=== PATIENT | female | born 1985 | race Caucasian/White ===

== ENCOUNTER 2021-08-27 14:18 | Emergency (ER) | payer BC, SELFPAY ==
[2021-08-27 14:34] VITALS: BP 127/76; PULSE 97; RESP 18; TEMP 36.6; O2SAT 100
--- NOTE | 2021-08-27 15:09 | ED.SKABFB ---
HPI - Skin/Abscess/Foreign Bdy General Chief complaint: Skin/Abscess/Foreign Body Stated complaint: Hives Time Seen by Provider: 08/27/21 15:10 Source: patient and RN notes reviewed Mode of arrival: ambulatory Limitations: no limitations History of Present Illness HPI narrative: 36-year-old female presents to the [facility] with hives to her face and lower extremities. Patient reports she keeps having these idiopathic hives from an unknown source every year for the last 10 years. States it started when she was with her daughter. Has been treated with a Medrol Dosepak recently along with Uvaldo Wright Patient states she has her class reunion coming up and needs her skin clear. Related Data Allergies Allergy/AdvReac Type Severity Reaction Status Date / Time amoxicillin Allergy Intermediate Rash Verified 08/24/21 16:21 Sulfa (Sulfonamide Allergy Intermediate Rash Verified 08/24/21 16:21 Antibiotics) azithromycin Allergy Unknown Unknown Verified 08/24/21 16:21 erythromycin base Allergy Unknown Unknown Verified 08/24/21 16:21 hydroxyzine AdvReac Unknown Other Verified 08/24/21 16:21 Review of Systems Review of Systems: All systems reviewed & are unremarkable except as noted in HPI and below Constitutional: Constitutional: Reports no additional constitutional complaints, Denies chills and Denies fever(s) Eyes: Eyes: Reports no additional eye complaints ENT: Reports system reviewed and no additional complaints, except as documented Cardiovascular: Cardiovascular: Reports no additional cardiovascular complaints Respiratory: Respiratory: Reports no additional respiratory complaints Gastrointestinal: Gastrointestinal: Reports no additional gastrointestinal complaints Musculoskeletal: Musculoskeletal: Reports no additional musculoskeletal complaints Integumentary/Breasts: Skin/Breast: Reports as per HPI and Reports rash Neurologic: Reports system reviewed and no additional complaints, except as documented Psychiatric: Psychiatric: Reports no additional psychiatric complaints Allergic/Immunologic: Allergic/Immunologic: Reports no additional allergic/immunologic complaints [facility] Past Medical History Medical History (Updated 08/27/21 @ 21:04 by Ruth Austin APRN) Idiopathic urticaria Surgical History Surgical History (Updated 08/27/21 @ 21:04 by Ruth Austin APRN) No pertinent past surgical history Social History Social History (Updated 08/27/21 @ 21:04 by Ruth Austin APRN) Living arrangements: with family Gender identity (if verbalized by the patient): Female Comments At the time of my signature, I reviewed and agree with the nursing past medical, surgical, social, and family history. There is no relevant family history pertinent to the patient complaint. Exam Const: General: healthy appearing, no acute distress and alert Nutritional Appearance: well nourished Orientation/consciousness: patient oriented x3 Limitations: no limitations HENMT: Head: normal to inspection Ears: external ears normal Eyes: General: appearance normal, both eyes and all related structures Pupils: Equal, round and reactive pupils present Neck: Neck: normal visual inspection, no lymphadenopathy and no meningeal signs Chest: Chest palpation & inspection: normal inspection of the chest Resp: Effort & Inspection: normal respiratory effort and no use of accessory muscles Auscultation: clear to auscultation bilaterally, no crackles, no rales, no rhonchi and no wheezes Cardio: Rate: regular rate Rhythm: regular rhythm Back/Spine/Pelvis: Cervical Spine: normal cervical lordosis Thoracic/Lumbar Spine: thoracic and lumbar spine normal to inspection Skin: General skin exam: normal color Rashes: rashes noted (Hives lower legs, contact dermatitis face) Wounds: no wounds Neuro: General: patient oriented x3, moves all extremities, no meningeal signs and no focal motor deficits Cranial nerves: Yes Eq
== END 2021-08-27 15:25 | disposition home or self-care (01) ==
PROVIDERS: Emergency Provider Nurse Practitioner
DX: L50.9 Urticaria, unspecified (principal)
CPT/HCPCS: 99213; G0463

== ENCOUNTER 2022-08-25 16:07 | Emergency (ER) | payer BC, SELFPAY ==
[2022-08-25 16:17] VITALS: BP 121/71; PULSE 93; RESP 16; TEMP 37.1; O2SAT 99
--- NOTE | 2022-08-25 16:21 | ED.SKABFB ---
HPI - Skin/Abscess/Foreign Bdy General Chief complaint: Wound/Laceration Stated complaint: tick bite irritation to back of head Time Seen by Provider: 08/25/22 16:44 Source: patient and RN notes reviewed Mode of arrival: ambulatory Limitations: no limitations History of Present Illness HPI narrative: 37-year-old female presents with concern for a tick bite to the back of her head. She reports she noticed the tick 5 days ago, removed it. She reports the entire take came out. She reports that area is tender and she has a red bump. She reports she feels tired and feels like her lymph nodes are swollen. Patient had a a prescription for doxycycline that she was prescribed at the end of July before she had the tick bite, for a skin infection. She reports her skin infection was getting better so she stopped taking the doxycycline less than half week through. She has not taken any doxycycline dose since she removed the tick MD complaint: insect bite/sting Related Data Home Medications Medication Instructions Recorded Confirmed bupropion HCl 300 mg 24 hr tablet, mg PO 08/25/22 extended release norethindrone (contraceptive) 0.35 mg 08/25/22 mg tablet Allergies Allergy/AdvReac Type Severity Reaction Status Date / Time amoxicillin Allergy Intermediate Rash Verified 08/25/22 16:12 Sulfa (Sulfonamide Allergy Intermediate Rash Verified 08/25/22 16:12 Antibiotics) azithromycin Allergy Unknown Unknown Verified 08/25/22 16:12 erythromycin base Allergy Unknown Unknown Verified 08/25/22 16:12 trazodone Allergy Other Verified 08/25/22 16:44 hydroxyzine AdvReac Unknown Other Verified 08/25/22 16:12 Review of Systems Review of Systems: CONSTITUTIONAL: Denies malaise, chills, sweats, or fever. Reports fatigue EYES: Denies redness, or discharge. ENT: Denies rhinorrhea, congestion, swollen lips, swollen tongue CARDIOVASCULAR: Denies chest pain, palpitations, or edema. RESPIRATORY: Denies cough or dyspnea. GASTROINTESTINAL: Denies abdominal pain, nausea, vomiting SKIN: Reports a red bump on the back of her head where she removed a tick MUSCULOSKELETAL: Denies joint pain. Reports myalgia. NEUROLOGIC: Denies headache. All systems reviewed & are unremarkable except as noted in HPI and below PMFSH Past Medical History Medical History (Updated 08/25/22 @ 16:50 by Ruth Trotter NP) Idiopathic urticaria Surgical History Surgical History (Updated 08/27/21 @ 21:04 by Ruth Austin APRN) No pertinent past surgical history Social History Social History (Updated 08/27/21 @ 21:04 by Ruth Austin APRN) Living arrangements: with family Gender identity (if verbalized by the patient): Female Comments At time of signature, agree with nursing past medical, surgical, social and family history. There is no relevant family history pertinent to the presenting complaint Exam Narrative: GENERAL: Well-appearing, well-nourished, and in no acute distress. HEAD: Normocephalic, atraumatic. EYES: PERRLA, conjunctivae clear, and EOMI. ENT: Mucous membranes moist. Oropharynx without edema, erythema or lesions. NECK: Supple. No lymphadenopathy CHEST: Clear to auscultation. No respiratory distress. HEART: Regular rate and rhythm. SKIN: Warm, dry. 1 cm raised erythematous nonfluctuant tender papule noted to the back of the head in the hairline. No erythema migrans noted NEURO: Alert and oriented x3. PSYCH: Normal mood and affect Course Course Emergency Course: Patient is aware of diagnosis, understands and agrees to treatment plan. Anticipatory guidance given. Patient agrees to follow-up as directed and is aware of reasons to seek care at the emergency department. Portions of this record may have been created with voice recognition software Level of Care: Express Care Visit Vital Signs Vital signs: Vital Signs Temperature 98.8 F 08/25/22 16:17 Pulse Rate 93 08/25/22 16:17 Respiratory Rate 16 06
[2022-08-25 16:44] VITALS: BP 121/71; PULSE 93; RESP 16; TEMP 37.1; O2SAT 99
== END 2022-08-25 16:53 | disposition home or self-care (01) ==
PROVIDERS: Emergency Provider Nurse Practitioner; PCP Physician Assistant
DX: S00.06XA Insect bite (nonvenomous) of scalp, initial encounter (principal); W57.XXXA Bitten or stung by nonvenomous insect and other nonvenomous arthropods, initial encounter
CPT/HCPCS: 99213; G0463

== ENCOUNTER 2022-10-29 15:58 | Emergency (ER) | payer BC, SELFPAY ==
[2022-10-29 15:59] VITALS: BP 107/64; PULSE 102; RESP 16; TEMP 36.8; O2SAT 98
[2022-10-29] MEDS: CLINDAMYCIN HCL 150 MG CAP 450 MG PO (17:42)
[2022-10-29] MEDS: ACETAMINOPHEN 500 MG TABLET 1000 MG PO (17:42)
--- NOTE | 2022-10-29 18:31 | ED.GENADULT ---
HPI - General Adult General Chief complaint: Skin/Abscess/Foreign Body Stated complaint: skin break out Time Seen by Provider: 10/29/22 16:44 History of Present Illness HPI narrative: Beth Hurd is a 37 y/o female who presents with reports of this ongoing rash to her face and some spots on her legs. She states that she has seen multiple walk in clinics, her PCP and she has tried several different antibiotics She reports that she had a dermatology appointment lined up but canceled because they told her they wouldn't be able to do a biopsy. She denies any fever/chills/abdominal pain/ nausea/vomiting She comes in with a few pages of hand written self documentation of what she has been going through over the past few months regarding this rash. Related Data Home Medications Medication Instructions Recorded Confirmed bupropion HCl 300 mg 24 hr tablet, mg PO 08/25/22 extended release norethindrone (contraceptive) 0.35 mg 08/25/22 mg tablet Allergies Allergy/AdvReac Type Severity Reaction Status Date / Time amoxicillin Allergy Intermediate Rash Verified 08/25/22 16:12 Sulfa (Sulfonamide Allergy Intermediate Rash Verified 08/25/22 16:12 Antibiotics) azithromycin Allergy Unknown Unknown Verified 08/25/22 16:12 erythromycin base Allergy Unknown Unknown Verified 08/25/22 16:12 trazodone Allergy Other Verified 08/25/22 16:44 hydroxyzine AdvReac Unknown Other Verified 08/25/22 16:12 Review of Systems Review of Systems: CONSTITUTIONAL: Denies fever, chills, or sweats. EYES: Denies visual changes, redness, or discharge. ENT: Denies rhinorrhea, congestion, sore throat, or otalgia. CARDIOVASCULAR: Denies chest pain, palpitations, or edema. RESPIRATORY: Denies cough or dyspnea. GASTROINTESTINAL: Denies abdominal pain, nausea, vomiting, or diarrhea. GENITOURINARY: Denies dysuria or hematuria. SKIN: itching rash to face, with a few spots to her legs. MUSCULOSKELETAL: Denies back pain, joint pain, or myalgia. NEUROLOGIC: Denies headache, numbness, dizziness, or weakness. PSYCHIATRIC: Denies anxiety or depression. [facility] Past Medical History Medical History Idiopathic urticaria Surgical History Surgical History No pertinent past surgical history Social History Social History Living arrangements: with family Gender identity (if verbalized by the patient): Female Exam Narrative: GENERAL: Well-appearing, well-nourished, and in no acute distress. HEAD: Normocephalic, atraumatic. EYES: PERRLA and EOMI. ENT: Nares clear, no rhinorrhea or epistaxis. Mucous membranes moist. Oropharynx without tonsillar hypertrophy exudate or other lesions. NECK: Supple. No adenopathy or masses. No carotid bruits or JVD CHEST: Clear to auscultation. No respiratory distress. No wheezes rales or rhonchi HEART: Regular rate and rhythm. No murmur heard. Normal peripheral pulses. ABDOMEN: Soft, nontender, nondistended, normal active bowel sounds. EXTREMITIES: Normal range of motion. No edema. SKIN: Warm, dry, multiple pustules noted to face in different stages of healing. No evidence of fluctuance/ evident of abscess NEURO: No focal deficits. Alert and oriented x3. PSYCH: Normal mood and affect. Course Vital Signs Vital signs: Vital Signs Temperature 36.8 C 10/29/22 15:59 Pulse Rate 102 H 10/29/22 15:59 Respiratory Rate 16 10/29/22 15:59 Blood Pressure 107/64 10/29/22 15:59 Pulse Oximetry 98 10/29/22 15:59 Temperature 36.8 C 10/29/22 15:59 Pulse Rate 102 H 10/29/22 15:59 Respiratory Rate 16 10/29/22 15:59 Blood Pressure 107/64 10/29/22 15:59 Pulse Oximetry 98 10/29/22 15:59 Medical Decision Making MDM Narrative Medical decision making narrative: On exam pt is upset that she is dealing with this rash reports
== END 2022-10-29 17:44 | disposition left against medical advice (07) ==
PROVIDERS: Emergency Provider Nurse Practitioner Family; PCP Physician Assistant
DX: L01.00 Impetigo, unspecified (principal); L25.9 Unspecified contact dermatitis, unspecified cause
CPT/HCPCS: 87070; 87147; 87181; 87186; 87205; 99283; A9270

== ENCOUNTER 2023-06-11 12:26 | Emergency (ER) | payer BC, SELFPAY ==
[2023-06-11 12:30] VITALS: BP 122/79; PULSE 107; RESP 16; TEMP 36.6; O2SAT 100
--- NOTE | 2023-06-11 13:51 | ED.SKABFB ---
HPI - Skin/Abscess/Foreign Bdy General Chief complaint: Skin/Abscess/Foreign Body Stated complaint: skin infection Time Seen by Provider: 06/11/23 13:51 Focused HPI: Kim is a 38-year-old female patient presenting to the clinic today with complaints of a skin infection to her face and neck. She reports she does have history of a staph infection in the past and has been apply mupirocin cream however she ran out the mupirocin cream. The infection is now getting worse and his traveling to her neck. States she has had history of rhinoplasty/septoplasty with grafting. Denies any fever, chills, or body aches. Patient is afebrile at this time. General: Well-developed, well nourished, in no apparent distress Head: Normocephalic, atraumatic Eyes: Pupils equally round and reactive to light bilaterally, EOM intact, sclera and conjunctive clear, no discharge, lids normal Ears: TMs intact and clear, ear canals clear, no drainage, grossly hearing normal. Nose: Nares patent, no discharge, mild inflammation, no sinus tenderness. Mouth: Oropharynx without lesions or masses, good dentition, MMM. Neck: Supple, trachea midline, no enlargement of anterior or posterior cervical nodes, no thyroid masses or goiter palpable. Cardio: Regular rate and rhythm, s1 and s2 normal, no murmur appreciated. Resp: Clear to auscultation bilaterally anteriorly and posteriorly, no rhonchi, rales, wheezing or rubs Integumentary: [place], warm, and dry, red, yellow crusted wounds to the nose and cheeks with some redness rash to the anterior left and right neck Patient screened in triage and initial orders placed. Additional care and disposition to be based upon diagnostic testing and treatment. Source: patient Mode of arrival: ambulatory Limitations: no limitations Related Data Home Medications Medication Instructions Recorded Confirmed bupropion HCl 300 mg 24 hr tablet, mg PO 08/25/22 extended release norethindrone (contraceptive) 0.35 mg 08/25/22 mg tablet Allergies Allergy/AdvReac Type Severity Reaction Status Date / Time amoxicillin Allergy Intermediate Rash Verified 08/25/22 16:12 Sulfa (Sulfonamide Allergy Intermediate Rash Verified 08/25/22 16:12 Antibiotics) azithromycin Allergy Unknown Unknown Verified 08/25/22 16:12 erythromycin base Allergy Unknown Unknown Verified 08/25/22 16:12 Penicillins Allergy Unknown Verified 06/11/23 12:36 trazodone Allergy Other Verified 08/25/22 16:44 hydroxyzine AdvReac Unknown Other Verified 08/25/22 16:12 Review of Systems Review of Systems: Pertinent positives per HPI. Patient denies any fever, chills, headache, visual changes, dizziness, cough, runny nose, sore throat, shortness of breath, chest pain, palpitations, nausea, vomiting, diarrhea, constipation, abdominal pain, or any urinary issues. PMFSH Past Medical History Medical History Idiopathic urticaria Surgical History Surgical History No pertinent past surgical history Social History Social History Living arrangements: with family Gender identity (if verbalized by the patient): Female Comments At the time of my signature, I reviewed and agree with the nursing past medical, surgical, social, and family history. There is no relevant family history pertinent to the patient complaint. Exam Narrative: General: Well-developed, well nourished, in no apparent distress Head: Normocephalic, atraumatic Eyes: Pupils equally round and reactive to light bilaterally, EOM intact, sclera and conjunctive clear, no discharge, lids normal Ears: TMs intact and clear, ear canals clear, no drainage, grossly hearing normal. Nose: Nares patent, no discharge, mild inflammation, no sinus tenderness. Mouth: Oropharynx without lesions or masses, good dentition, MMM. Neck:
[2023-06-11 14:12] LABS: Basophils Absolute Auto 0.1 K/mm3 (0.0-0.1); Eosinophils Absolute Auto 0.1 K/mm3 (0-0.3); Eosinophils Percent Auto 1.7 % (0-4.4); Hematocrit 39.1 % (37.0-47.0); Hemoglobin 12.7 g/dL (12.0-15.0); Immature Granulocyte Absolute 0.01 K/mm3 (0.00-0.031); Immature Granulocyte Percent A 0.2 % (0-0.5); Lymphocytes Absolute Auto 1.76 K/mm3 (0.9-3.2); Lymphocytes Percent Auto 29.5 % (18.3-44.2); Mean Corpuscular HGB Conc 32.5 g/dl (32-36); Mean Corpuscular Hemoglobin 29.2 pg (26-34); Mean Corpuscular Volume 89.9 fl (80-100); Mean Platelet Volume 10.7 fl (7.4-10.4); Monocytes Absolute Auto 0.6 K/mm3 (0.1-0.6); Monocytes Percent Auto 9.2 % (2.6-8.5); Neutrophils Absolute Auto 3.5 K/mm3 (1.3-6.7); Neutrophils Percent Auto 58.4 % (45.5-73.1); Platelet Count Result 222 k/mm3 (150-375); Red Blood Count 4.35 M/mm3 (4.2-5.4)
[2023-06-11 14:22] LABS: Alanine Aminotransferase 17 U/L (6-35); Albumin Level 4.2 g/dL (3.5-5.1); Alkaline Phosphatase 61 U/L (38-126); Anion Gap 4 mmol/L (8-16); Aspartate Amino Transferase 25 U/L (14-36); Bilirubin,Total 0.4 mg/dL (0.2-1.3); Blood Urea Nitrogen 17 mg/dL (7-17); Calcium 9.1 mg/dL (8.4-10.2); Carbon Dioxide 27 mmol/L (22-30); Chloride 107 mmol/L (98-107); Estimated CRCL calculation 81 ml/min; Estimated Glomerular Filt Rate > 60; Glucose 87 mg/dL (65-110); Potassium 3.8 mmol/L (3.4-5.0); Sodium 138 mmol/L (137-145)
== END 2023-06-11 15:33 | disposition home or self-care (01) ==
LOC: ANHED 15:17
PROVIDERS: Emergency Provider Nurse Practitioner Family; PCP Physician Assistant
DX: L08.9 Local infection of the skin and subcutaneous tissue, unspecified (principal); B96.89 Other specified bacterial agents as the cause of diseases classified elsewhere
CPT/HCPCS: 36415; 80053; 85025; 99283

== ENCOUNTER 2023-07-08 16:52 | Emergency (ER) | payer BC, SELFPAY ==
--- NOTE | ~2023-07-08 | CT_ITS ---
EXAMINATION: CTA neck DATE: 07/08/2023 18:40 INDICATION: Right neck pain. TECHNIQUE: Computed tomographic angiography (CTA) of the neck was performed with 100 mL Omnipaque-350 intravenous contrast. Automated exposure control and iterative reconstruction technique were employe d. The dose-length product was 928.24 mGy-cm. Maximum intensity projection 3D-reconstructions were cr eated by the technologist on a separate workstation. COMPARISON: None. FINDINGS: There is mild scarring at the lung apices. There are nodules in the thyroid measuring up to 3 mm, likely not clinically significant. There are no pathologically enlarged lymph nodes. The verte bral arteries are codominant. There is no significant stenosis of the vertebral arteries. There is no visible plaque in the proximal internal carotid arteries. There is 0% stenosis of the proximal right internal carotid artery relative to normal distal artery lumen diameter (NASCET criteria). There is 0% stenosis of the proximal left internal carotid artery relative to normal distal artery lumen diame ter. There is mild cervical spondylosis. IMPRESSION: 1. 0% stenosis of the proximal internal carotid arteries relative to normal distal artery lumen diame ters (NASCET criteria). Reviewed, dictated and finalized at location E. IMPRESSION: 1. 0% stenosis of the proximal internal carotid arteries relative to normal dis ricardo artery lumen diameters (NASCET criteria).
--- NOTE | ~2023-07-08 | XR_ITS ---
EXAMINATION: XR chest 2V DATE: 07/08/2023 17:51 INDICATION: Chest pain. TECHNIQUE: Frontal and lateral views of the chest were obtained. COMPARISON: Chest 2 views 05/23/2018 FINDINGS: There is no pneumonia, pleural effusion, or pneumothorax. The heart size is normal. IMPRESSION: 1. No acute cardiopulmonary disease. Reviewed, dictated and finalized at location E.
--- NOTE | ~2023-07-08 | US_ITS ---
EXAMINATION: US venous doppler UE RT DATE: 07/08/2023 17:54 INDICATION: Right neck pain and swelling. TECHNIQUE: Grayscale ultrasound images without and with compression and Doppler ultrasound images of the right upper extremity veins were obtained. COMPARISON: None. FINDINGS: The visualized portions of the right internal jugular vein, subclavian vein, axillary vein, brachial veins, basilic vein, cephalic vein, radial vein, and ulnar vein are patent. IMPRESSION: 1. No deep venous thrombosis. Reviewed, dictated and finalized at location E.
--- NOTE | 2023-07-08 16:53 | ECG_ITS ---
SEE SCANNED COPY FOR CONFIRMED REPORT MTDD
[2023-07-08 17:11] VITALS: BP 145/93; PULSE 98; RESP 17; TEMP 36.9; O2SAT 96
--- NOTE | 2023-07-08 17:19 | ED.NECK ---
HPI - Neck Pain/Injury General Chief Complaint: Neck Pain/Injury Stated Complaint: pain to neck veins Time Seen by Provider: 07/08/23 17:02 History of Present Illness HPI Narrative: 38-year-old female presents to emergency department for right-sided neck pain and swelling. Patient states around 2:00 p.m. she was in a job interview when she began having pain to the right side of her neck. States she has noticed swelling to the vein and it is now ?bifurcating 2 times?. States she has had 2 heart attacks in the past and she is concerned she is having another one. 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 Also states she believes she had adenovirus the other day due to URI sx, but that has since improved. Today, the patient denies chest pain or shortness of breath, vision changes, focal numbness or weakness, headache, cough or congestion, abdominal pain, vomiting, fever, sore throat, otalgia. States she was nauseous yesterday. States she drinks approximately 2 beers per day and uses marijuana daily. States she has a remote history of IV drug use but has not used in 10 years. States she was recently started on an estrogen containing control. Related Data Home Medications Medication Instructions Recorded Confirmed bupropion HCl 300 mg 24 hr tablet, mg PO 08/25/22 extended release norethindrone (contraceptive) 0.35 mg 08/25/22 mg tablet Allergies Allergy/AdvReac Type Severity Reaction Status Date / Time amoxicillin Allergy Intermediate Rash Verified 07/08/23 17:18 Sulfa (Sulfonamide Allergy Intermediate Rash Verified 07/08/23 17:18 Antibiotics) azithromycin Allergy Unknown Unknown Verified 07/08/23 17:18 erythromycin base Allergy Unknown Unknown Verified 07/08/23 17:18 Penicillins Allergy Unknown Verified 07/08/23 17:18 trazodone Allergy Other Verified 07/08/23 17:18 hydroxyzine AdvReac Unknown Other Verified 07/08/23 17:18 Review of Systems Review of Systems: CONSTITUTIONAL: Denies fever, chills, or sweats. EYES: Denies visual changes, redness, or discharge. ENT: Denies rhinorrhea, congestion, sore throat, or otalgia. CARDIOVASCULAR: Denies chest pain, palpitations, or edema. RESPIRATORY: Denies cough or dyspnea. GASTROINTESTINAL: Denies abdominal pain, nausea, vomiting, or diarrhea. GENITOURINARY: Denies dysuria or hematuria. SKIN: Denies rash or itching. MUSCULOSKELETAL: Denies back pain, joint pain, or myalgia. NEUROLOGIC: See HPI PSYCHIATRIC: Denies anxiety or depression. [facility] Past Medical History Medical History Idiopathic urticaria Surgical History Surgical History No pertinent past surgical history Social History Social History Living arrangements: with family Gender identity (if verbalized by the patient): Female Exam Narrative: GENERAL: Well-appearing, well-nourished, and in no acute distress. HEAD: Normocephalic, atraumatic. EYES: PERRLA and EOMI. ENT: Nares clear, no rhinorrhea or epistaxis. Mucous membranes moist. NECK: No midline cervical spinous tenderness, step-offs or deformities. Tenderness along the IJ of the right side of the neck with minimal increased size of the right IJ when compared to the left. No overlying skin changes, rashes or lesions. No edema to the upper extremities. CHEST: Clear to auscultation. No respiratory distress. HEART: Regular rate and rhythm. No murmur heard. Normal peripheral pulses. ABDOMEN: Soft, nontender, nondistended, normal active bowel sounds. EXTREMITIES: Normal range of motion. No edema. SKIN: Warm, dry, no rash. NEURO: No focal deficits. Alert and oriented x3. Moving all extremities spontaneously Course Vital Signs Vital signs: Vital Signs Temper
[2023-07-08 17:48] LABS: Basophils Percent Auto 0.7 % (0.2-1.2); Eosinophils Absolute Auto 0.1 K/mm3 (0-0.3); Eosinophils Percent Auto 0.8 % (0-4.4); Hemoglobin 12.9 g/dL (12.0-15.0); Immature Granulocyte Absolute 0.01 K/mm3 (0.00-0.031); Immature Granulocyte Percent A 0.2 % (0-0.5); Lymphocytes Percent Auto 36.7 % (18.3-44.2); Mean Corpuscular HGB Conc 34.9 g/dl (32-36); Mean Corpuscular Hemoglobin 29.7 pg (26-34); Mean Corpuscular Volume 85.1 fl (80-100); Mean Platelet Volume 10.2 fl (7.4-10.4); Monocytes Absolute Auto 0.5 K/mm3 (0.1-0.6); Monocytes Percent Auto 8.8 % (2.6-8.5); Neutrophils Absolute Auto 3.2 K/mm3 (1.3-6.7); Neutrophils Percent Auto 52.8 % (45.5-73.1); Platelet Count Result 231 k/mm3 (150-375); Red Blood Count 4.35 M/mm3 (4.2-5.4)
[2023-07-08 17:49] LABS: Appearance Urine Clear (Clear); Bilirubin Urine Negative (Negative); Blood Urine Negative (Negative); Color Urine Yellow (Yellow); Glucose Urine UA Negative (Negative); Ketones Urine Negative (Negative); Leukocyte Esterase Ur Negative LEU/UL (Negative); Nitrate Urine Negative (Negative); Protein Urine Negative (Negative); Specific Grav Ur 1.014 (1.001-1.035); Urobilinogen Urine 0.2 mg/dL (<2.0); pH Urine 5.5 (5.0-9.0)
[2023-07-08 17:59] LABS: Alanine Aminotransferase 15 U/L (6-35); Albumin Level 4.6 g/dL (3.5-5.1); Alkaline Phosphatase 53 U/L (38-126); Anion Gap 10 mmol/L (4-12); Aspartate Amino Transferase 28 U/L (14-36); Bilirubin,Total 0.5 mg/dL (0.2-1.3); Blood Urea Nitrogen 15 mg/dL (7-17); Calcium 9.4 mg/dL (8.4-10.2); Carbon Dioxide 26 mmol/L (22-30); Chloride 104 mmol/L (98-107); Estimated CRCL calculation 62 ml/min; Estimated Glomerular Filt Rate > 60; Glucose 88 mg/dL (65-110); Lipase 67 U/L (23-300); Potassium 3.9 mmol/L (3.4-5.0); Sodium 140 mmol/L (137-145)
[2023-07-08 18:00] LABS: INR 0.9; Partial Thromboplastin Time 30.7 Seconds (22.3-36.8); Prothrombin Time 12.6 Seconds (11.1-14.7)
[2023-07-08 18:04] LABS: Amphetamine Screen Urine Positive (Negative); Barbiturate Screen Urine Negative (Negative); Benzodiazepines Screen Urine Negative (Negative); Cannabinoid Screen Urine Positive (Negative); Cocaine Screen Urine Negative (Negative); Methadone Screen Urine Negative (Negative); Opiate Screen Urine Negative (Negative); Phencyclidine Screen Urine Negative (Negative)
[2023-07-08 18:06] VITALS: BP 123/83; PULSE 83; RESP 12; O2SAT 98
[2023-07-08 18:07] VITALS: PULSE 88; RESP 20; O2SAT 99
[2023-07-08 18:10] LABS: Troponin I < 0.012 ng/mL (0.000-0.034)
[2023-07-08 18:33] LABS: Add Urine Microscopic? NO
[2023-07-08 18:35] LABS: Influenza A QL RT-PCR Negative (Negative); Influenza B QL RT-PCR Negative (Negative); RSV RNA, RT-PCR Negative (Negative); SARS-CoV-2 RNA PCR Negative (Negative)
[2023-07-08 19:03] VITALS: BP 117/80; PULSE 88; RESP 20; O2SAT 100
== END 2023-07-08 19:03 | disposition home or self-care (01) ==
PROVIDERS: Family Medicine; Emergency Provider Physician Assistant; PCP Physician Assistant
DX: M54.2 Cervicalgia (principal); Z20.822 Contact with and (suspected) exposure to COVID-19
CPT/HCPCS: 36415; 70498; 71046; 80053; 80307; 81003; 81025; 83690; 84484; 85025; 85610; 85730; 87637; 93005; 93971; 99284; Q9967

== ENCOUNTER 2023-08-06 17:24 | Emergency (ER) | payer BC, SELFPAY ==
--- NOTE | ~2023-08-06 | XR_ITS ---
EXAMINATION: XR chest 2V DATE: 08/06/2023 17:59 INDICATION: Cough and fever. TECHNIQUE: Frontal and lateral views of the chest were obtained. COMPARISON: Chest 2 views 07/08/2023 FINDINGS: There is no pneumonia, pleural effusion, or pneumothorax. The heart size is normal. IMPRESSION: 1. No acute cardiopulmonary disease. Reviewed, dictated and finalized at location E.
[2023-08-06 17:36] VITALS: BP 105/72; PULSE 84; RESP 16; TEMP 37.2; O2SAT 100
--- NOTE | 2023-08-06 18:29 | ED.GENADULT ---
HPI - General Adult General Chief complaint: Asthma Stated complaint: SOB,asthmatic Time Seen by Provider: 08/06/23 18:18 Source: patient and RN notes reviewed Mode of arrival: ambulatory Limitations: no limitations History of Present Illness HPI narrative: Patient presents today complaining of a 12 day history of illness. She initially had some upper respiratory symptoms to include nasal congestion and sore throat. This resolved then 4-5 days ago she developed chest congestion, cough, sweats, nausea. She developed fever up to 101.5 this morning. History of asthma but does not currently have an inhaler. She has been taking Tylenol, ibuprofen, allergy medicine, Pepto-Bismol, and Robitussin. She has also been using a friend's albuterol inhaler. Related Data Home Medications Medication Instructions Recorded Confirmed bupropion HCl 300 mg 24 hr tablet, 300 mg PO DAILY 08/25/22 08/06/23 extended release norethindrone (contraceptive) 0.35 0.35 mg PO DAILY 08/25/22 08/06/23 mg tablet cyclobenzaprine 10 mg tablet mg 08/06/23 Allergies Allergy/AdvReac Type Severity Reaction Status Date / Time amoxicillin Allergy Intermediate Rash Verified 08/06/23 17:28 Sulfa (Sulfonamide Allergy Intermediate Rash Verified 08/06/23 17:28 Antibiotics) azithromycin Allergy Unknown Unknown Verified 08/06/23 17:28 erythromycin base Allergy Unknown Unknown Verified 08/06/23 17:28 Penicillins Allergy Unknown Verified 08/06/23 17:28 trazodone Allergy Other Verified 08/06/23 17:28 hydroxyzine AdvReac Unknown Other Verified 08/06/23 17:28 Review of Systems Review of Systems: CONSTITUTIONAL: Denies body aches, chills.+ fever, sweats EYES: Denies visual changes, redness, or discharge. ENT: Denies rhinorrhea, congestion, sore throat, or otalgia. CARDIOVASCULAR: Denies chest pain, palpitations, or edema. RESPIRATORY:+ chest congestion, cough GASTROINTESTINAL: Denies abdominal pain, vomiting, or diarrhea.+ nausea GENITOURINARY: Denies dysuria or hematuria. SKIN: Denies rash, itching, or wounds. MUSCULOSKELETAL: Denies back pain, joint pain, or myalgia. NEUROLOGIC: Denies headache, numbness, tingling, or weakness. PSYCH: Denies depression or anxiety. PMFSH Past Medical History Medical History (Updated 08/06/23 @ 18:33 by Bessy Bansal, MARU, ) Asthma Idiopathic urticaria Surgical History Surgical History No pertinent past surgical history Social History Social History Living arrangements: with family Gender identity (if verbalized by the patient): Female Comments At time of signature, I have reviewed and agree with nursing past medical, surgical, social and family history unless otherwise noted. Please see nursing chart for further information. There is no relevant family history pertinent to the presenting complaint Exam Narrative: GENERAL: Well-appearing, well-nourished, and in no acute distress. HEAD: Normocephalic, atraumatic. EYES: EOMI. No redness or drainage. Conjunctivae normal. ENT: Mucous membranes pink and moist. Nares clear. No rhinorrhea. TMs normal bilaterally. Throat normal. Uvula midline. NECK: Normal AROM. Supple. No lymphadenopathy. CHEST: No respiratory distress. Clear to auscultation. HEART: Regular rate and rhythm. No murmur appreciated. EXTREMITIES: Normal range of motion. No edema. SKIN: Warm, dry, no rash. Capillary refill normal. Normal skin turgor. NEURO: No focal deficits. Alert and oriented x3. Gait steady. PSYCH: Normal affect. No signs of depression or anxiety. Course Course Level of Care: Express Care Visit Vital Signs Vital signs: Vital Signs Temperature 99 F 08/06/23 17:36 Pulse Rate 84 08/06/23 17:36 Respiratory Rate 16 08/06/23 17:36 Blood Pressure 105/72 08/06/23 17:36 Pulse Oximetry 100 08/06/23 17:36 Oxygen
== END 2023-08-06 18:35 | disposition home or self-care (01) ==
PROVIDERS: Emergency Provider Nurse Practitioner; PCP Physician Assistant
DX: J45.901 Unspecified asthma with (acute) exacerbation (principal)
CPT/HCPCS: 71046; 99213; G0463

== ENCOUNTER 2023-08-21 09:25 | Emergency (ER) | payer BC, SELFPAY ==
[2023-08-21 09:32] VITALS: BP 106/71; PULSE 97; RESP 16; TEMP 37.3; O2SAT 98
--- NOTE | 2023-08-21 09:38 | ED.SKABFB ---
HPI - Skin/Abscess/Foreign Bdy General Chief complaint: Skin/Abscess/Foreign Body Stated complaint: rash on face & eyes, vaginal issue Time Seen by Provider: 08/21/23 09:28 Source: patient Mode of arrival: ambulatory Limitations: no limitations History of Present Illness HPI narrative: Patient is a 38-year-old female who presents with rash on face and neck after getting in hot tub. Patient also having white thick discharge from vagina and itching. Patient has been using [id number] fungal cream on face with moderate relief. Related Data Home Medications Medication Instructions Recorded Confirmed bupropion HCl 300 mg 24 hr tablet, 300 mg PO DAILY 08/25/22 08/21/23 extended release norethindrone (contraceptive) 0.35 0.35 mg PO DAILY 08/25/22 08/21/23 mg tablet Allergies Allergy/AdvReac Type Severity Reaction Status Date / Time amoxicillin Allergy Intermediate Rash Verified 08/06/23 17:28 Sulfa (Sulfonamide Allergy Intermediate Rash Verified 08/06/23 17:28 Antibiotics) azithromycin Allergy Unknown Unknown Verified 08/06/23 17:28 erythromycin base Allergy Unknown Unknown Verified 08/06/23 17:28 Penicillins Allergy Unknown Verified 08/06/23 17:28 trazodone Allergy Other Verified 08/06/23 17:28 hydroxyzine AdvReac Unknown Other Verified 08/06/23 17:28 Review of Systems Review of Systems: All systems reviewed & are unremarkable except as noted in HPI and below Constitutional: Constitutional: Denies body ache(s), Denies chills, Denies fatigue, Denies fever(s), Denies headache(s), Denies malaise and Denies weakness Eyes: Eyes: Denies blurry vision, Denies irritation and Denies loss of vision ENT: Denies otalgia, Denies headache(s), Denies nasal discharge, Denies sinus pain and Denies sore throat Cardiovascular: Cardiovascular: Denies chest pain, Denies irregular heart rhythm and Denies dyspnea Respiratory: Respiratory: Denies dyspnea Gastrointestinal: Gastrointestinal: Denies abdominal pain, Denies melena, Denies hematochezia, Denies diarrhea, Denies nausea and Denies vomiting Genitourinary: Genitourinary: Reports vaginal discharge, Reports vaginal odor and Reports vaginal pruritus Musculoskeletal: Musculoskeletal: Denies back pain, Denies myalgias and Denies arthralgias Integumentary/Breasts: Skin/Breast: Denies pruritus and Reports rash Neurologic: Denies headache(s), Denies loss of vision and Denies weakness Psychiatric: Psychiatric: Reports no additional psychiatric complaints Endocrine: Endocrine: Denies fatigue PMFSH Past Medical History Medical History Asthma Idiopathic urticaria Surgical History Surgical History No pertinent past surgical history Social History Social History Living arrangements: with family Gender identity (if verbalized by the patient): Female Comments At time of signature, agree with nursing past medical, surgical, social and family history. There is no relevant family history pertinent to the presenting complaint. Exam Const: General: cooperative, healthy appearing, comfortable, no acute distress and well nourished Nutritional Appearance: well nourished Orientation/consciousness: patient oriented x3 Limitations: no limitations HENMT: Head: normal to inspection, normocephalic and atraumatic Ears: hearing grossly normal bilaterally and external ears normal Face/Nose/Sinus: Normal external nose present, normal facial exam and face symmetric Face and sinus: normal facial exam and face symmetric Mouth: Yes lip normal Eyes: General: appearance normal, both eyes and all related structures Alignment and Position: alignment normal and position normal Periorbital: periorbital findings normal Eyelids: eyelids normal Pupils: Equal, round and reactive pupils present EOM: EOMs intact bilaterally
== END 2023-08-21 09:45 | disposition home or self-care (01) ==
PROVIDERS: Emergency Provider Nurse Practitioner Family; PCP Physician Assistant
DX: B37.31 Acute candidiasis of vulva and vagina (principal); B35.9 Dermatophytosis, unspecified; J45.909 Unspecified asthma, uncomplicated
CPT/HCPCS: 99213; G0463

== ENCOUNTER 2023-09-03 17:42 | Emergency (ER) | payer BC, SELFPAY ==
[2023-09-03 17:50] VITALS: BP 107/63; PULSE 65; RESP 18; TEMP 37.2; O2SAT 100
--- NOTE | 2023-09-03 18:20 | ED.SKABFB ---
HPI - Skin/Abscess/Foreign Bdy General Chief complaint: Skin/Abscess/Foreign Body Stated complaint: Angular Cheilitis Time Seen by Provider: 09/03/23 18:11 Source: patient and RN notes reviewed Mode of arrival: ambulatory Limitations: no limitations History of Present Illness HPI narrative: Patient presents today complaining of a 17 day history of a rash to the corners of her mouth. States it started after she got a fungal rash [place] She was subsequently treated at [facility] with 2 fluconazole and states her face and neck rash mostly resolved, but the rash in the corners of her mouth persists. States she has been trying topical Clotrimazole daily to every other day without relief of symptoms. Related Data Home Medications Medication Instructions Recorded Confirmed bupropion HCl 300 mg 24 hr tablet, 300 mg PO DAILY 08/25/22 09/03/23 extended release norethindrone (contraceptive) 0.35 0.35 mg PO DAILY 08/25/22 09/03/23 mg tablet Allergies Allergy/AdvReac Type Severity Reaction Status Date / Time amoxicillin Allergy Intermediate Rash Verified 09/03/23 18:02 Sulfa (Sulfonamide Allergy Intermediate Rash Verified 09/03/23 18:02 Antibiotics) azithromycin Allergy Unknown Unknown Verified 09/03/23 18:02 erythromycin base Allergy Unknown Unknown Verified 09/03/23 18:02 Penicillins Allergy Unknown Verified 09/03/23 18:02 trazodone Allergy Other Verified 09/03/23 18:02 hydroxyzine AdvReac Unknown Other Verified 09/03/23 18:02 Review of Systems Review of Systems: CONSTITUTIONAL: Denies body aches, fever, chills, or sweats. EYES: Denies visual changes, redness, or discharge. ENT: Denies rhinorrhea, congestion, sore throat, or otalgia. CARDIOVASCULAR: Denies chest pain, palpitations, or edema. RESPIRATORY: Denies cough or dyspnea. GASTROINTESTINAL: Denies abdominal pain, nausea, vomiting, or diarrhea. GENITOURINARY: Denies dysuria or hematuria. SKIN: rash to corners of mouth MUSCULOSKELETAL: Denies back pain, joint pain, or myalgia. NEUROLOGIC: Denies headache, numbness, tingling, or weakness. PSYCH: Denies depression or anxiety. [facility] Past Medical History Medical History Asthma Idiopathic urticaria Surgical History Surgical History No pertinent past surgical history Social History Social History Living arrangements: with family Gender identity (if verbalized by the patient): Female Comments At time of signature, I have reviewed and agree with nursing past medical, surgical, social and family history unless otherwise noted. Please see nursing chart for further information. There is no relevant family history pertinent to the presenting complaint Exam Narrative: GENERAL: Well-appearing, well-nourished, and in no acute distress. HEAD: Normocephalic, atraumatic. EYES: EOMI. No redness or drainage. Conjunctivae normal. Corners of mouth are dry, cracked, and red. No papules or drainage. ENT: Mucous membranes pink and moist. NECK: Normal AROM. CHEST: No respiratory distress. SKIN: Warm, dry, no rash. Capillary refill normal. Normal skin turgor. NEURO: No focal deficits. Alert and oriented x3. Gait steady. PSYCH: Normal affect. No signs of depression or anxiety. Course Course Level of Care: Express Care Visit Vital Signs Vital signs: Vital Signs Temperature 99 F 09/03/23 17:50 Pulse Rate 65 09/03/23 17:50 Respiratory Rate 18 09/03/23 17:50 Blood Pressure 107/63 09/03/23 17:50 Pulse Oximetry 100 09/03/23 17:50 Oxygen Delivery Room Air 09/03/23 17:50 Temperature 99 F 09/03/23 17:50 Pulse Rate 65 09/03/23 17:50 Respiratory Rate 18 09/03/23 17:50 Blood Pressure 107/63 09/03/23 17:50 Pulse Oximetry 100 09/03/23 17:50 Oxygen Del
== END 2023-09-03 18:30 | disposition home or self-care (01) ==
LOC: EXPCOLL 17:45
PROVIDERS: Emergency Provider Nurse Practitioner; PCP Physician Assistant
DX: K13.0 Diseases of lips (principal); J45.909 Unspecified asthma, uncomplicated
CPT/HCPCS: 99213; G0463

== ENCOUNTER 2023-09-17 18:53 | Emergency (ER) | payer BC, SELFPAY ==
[2023-09-17 19:23] VITALS: BP 119/86; PULSE 90; RESP 16; TEMP 36.6; O2SAT 100
--- NOTE | 2023-09-17 19:52 | ED.GENADULT ---
HPI - General Adult General Chief complaint: Unspecified Stated complaint: Stomach Problems Time Seen by Provider: 09/17/23 19:27 Source: patient and RN notes reviewed Mode of arrival: ambulatory Limitations: no limitations History of Present Illness HPI narrative: Patient presents today complaining of a 7-8 month history of abdominal cramping, intermittent nausea, occasional loose stools. Patient states she believe she has a tapeworm and has a picture to show. She would like to be treated for parasites today along with her daughter, who is asymptomatic. Related Data Home Medications Medication Instructions Recorded Confirmed bupropion HCl 300 mg 24 hr tablet, 300 mg PO DAILY 08/25/22 09/17/23 extended release norethindrone (contraceptive) 0.35 0.35 mg PO DAILY 08/25/22 09/17/23 mg tablet Allergies Allergy/AdvReac Type Severity Reaction Status Date / Time amoxicillin Allergy Intermediate Rash Verified 09/17/23 18:58 Sulfa (Sulfonamide Allergy Intermediate Rash Verified 09/17/23 18:58 Antibiotics) azithromycin Allergy Unknown Unknown Verified 09/17/23 18:58 erythromycin base Allergy Unknown Unknown Verified 09/17/23 18:58 Penicillins Allergy Unknown Verified 09/17/23 18:58 trazodone Allergy Other Verified 09/17/23 18:58 hydroxyzine AdvReac Unknown Other Verified 09/17/23 18:58 Review of Systems Review of Systems: CONSTITUTIONAL: Denies body aches, fever, chills, or sweats. EYES: Denies visual changes, redness, or discharge. ENT: Denies rhinorrhea, congestion, sore throat, or otalgia. CARDIOVASCULAR: Denies chest pain, palpitations, or edema. RESPIRATORY: Denies cough or dyspnea. GASTROINTESTINAL: + abdominal cramping, nausea, loose stool. GENITOURINARY: Denies dysuria or hematuria. SKIN: Denies rash, itching, or wounds. MUSCULOSKELETAL: Denies back pain, joint pain, or myalgia. NEUROLOGIC: Denies headache, numbness, tingling, or weakness. PSYCH: Denies depression or anxiety. [facility] Past Medical History Medical History Asthma Idiopathic urticaria Surgical History Surgical History No pertinent past surgical history Social History Social History Living arrangements: with family Gender identity (if verbalized by the patient): Female Comments At time of signature, I have reviewed and agree with nursing past medical, surgical, social and family history unless otherwise noted. Please see nursing chart for further information. There is no relevant family history pertinent to the presenting complaint Exam Narrative: GENERAL: Well-appearing, well-nourished, and in no acute distress. HEAD: Normocephalic, atraumatic. EYES: EOMI. No redness or drainage. Conjunctivae normal. ENT: Mucous membranes pink and moist. NECK: Normal AROM. CHEST: No respiratory distress. Clear to auscultation. HEART: Regular rate and rhythm. No murmur appreciated. ABDOMEN: Soft, nontender, nondistended, normal active bowel sounds. EXTREMITIES: Normal range of motion. No edema. SKIN: Warm, dry, no rash. Capillary refill normal. Normal skin turgor. NEURO: No focal deficits. Alert and oriented x3. Gait steady. PSYCH: Normal affect. No signs of depression or anxiety. Course Course Emergency Course: The photo that patient had on her phone was some stringy intestinal lining that was shed during a bowel movement. There was no worm, mucus, blood in the toilet. Discussed this with patient. Level of Care: Express Care Visit Vital Signs Vital signs: Vital Signs Temperature 98 F 09/17/23 19:23 Pulse Rate 90 09/17/23 19:23 Respiratory Rate 16 09/17/23 19:23 Blood Pressure 119/86 09/17/23 19:23 Pulse Oximetry 100 09/17/23 19:23 Oxygen Delivery Room Air 09/17/23 19:23 Temperature 98 F 09/17/23 19:23
== END 2023-09-17 19:58 | disposition home or self-care (01) ==
PROVIDERS: Emergency Provider Nurse Practitioner; PCP Physician Assistant
DX: R10.9 Unspecified abdominal pain (principal); J45.909 Unspecified asthma, uncomplicated
CPT/HCPCS: 99211; G0463